=== PATIENT | female | born 1985 | race African-American/Black ===

== ENCOUNTER 2017-04-24 20:53 | Emergency (ER) | payer MEDICAID ==
[~2017-04-24] VITALS: Ht 157.5 cm; Wt 71.0 kg
[2017-04-24 20:56] VITALS: BP 126/80; PULSE 84; RESP 16; TEMP 98.1; O2SAT 100
--- NOTE | 2017-04-24 21:23 | PD ---
HPI Chief Complaint: Eye Problems/Injury Time Seen by Provider: 21:18 Travel History International Travel<30 days: No Contact w/Intl Traveler<30days: No Traveled to known affect area: No History of Present Illness HPI 31-year-old black female presents to emergency Department with complaints of a red eye since Sunday. She states that her daughter recently had pink eye. She works in a [employer] as a nurse. The patient states that she has had clear tearing, slight pain, slight itching, swelling, and decreased vision from the left eye. She does not wear contacts or glasses. No history of direct trauma. She denies any recent illness. Up-to-date with immunizations. [facility], [facility] Past Medical History Medical History: Denies Significant Hx Tetanus Vaccination: < 5 Years ?: Not LMP: 04/17/17 Past Surgical History Surgical History: No Previous Surgery Social History Alcohol Use: No Tobacco Use: No Allergies-Medications (Allergen,Severity, Reaction): Coded Allergies: No Known Allergies (Unverified , 04/24/17) Review of Systems Except as stated in HPI: all other systems reviewed are Neg Eyes: Positive: Blurred Vision, Drainage, Redness, Foreign Body Sensation, Pain , Tearing, Visual changes, No: Diploplia, Photophobia, Blindness Physical Exam Narrative GENERAL: Well-developed, well-nourished in no acute distress. Nontoxic appearing. HEAD: Normocephalic, atraumatic. EYES: Pupils equal round and reactive. Extraocular motions intact. No scleral icterus. No injection or drainage in the right eye. The left eye is injected and there is some mild palpebral edema. There is mild periorbital edema. There is slight clear drainage. No matting. No warmth. One drop of Alcaine is instilled in the left eye. Her eye lids are flipped. No foreign body seen. For seen stain is negative for corneal abrasion. ENT: TMs clear without erythema. The external auditory canals clear. Nose: clear . Posterior pharynx is pink and moist. No tonsillar edema or exudate. Uvula midline. Airway patent. NECK: Trachea midline.Supple, nontender, moves head freely. No central bony tenderness or spasm. CARDIOVASCULAR: Regular rate and rhythm without murmurs, gallops, or rubs. RESPIRATORY: Clear to auscultation. Breath sounds equal bilaterally. No wheezes , rales, or rhonchi. GASTROINTESTINAL: Abdomen soft, non-tender, nondistended. No hepato-splenomegaly , or palpable masses. No guarding. EXTREMITIES: No clubbing, cyanosis, or edema. No joint tenderness, effusion, or edema noted. BACK: Nontender without deformity or crepitance. No flank tenderness. Data Data Last Documented VS Vital Signs Date Time Temp Pulse Resp B/P Pulse Ox O2 Delivery O2 Flow Rate FiO2 04/24/17 20:56 98.1 84 16 126/80 100 Orders Proparacaine 0.5% Opth Soln (Alcaine 0.5 (04/24/17 21:30) MDM Medical Decision Making Medical Screen Exam Complete: Yes Emergency Medical Condition: Yes Medical Record Reviewed: Yes Differential Diagnosis MDM: High Differential diagnoses: Acute conjunctivitis (bacterial, viral, allergic, traumatic), glaucoma, iritis, Narrative Course Patient will be given Polytrim ophthalmic drops for possible bacterial conjunctivitis although I suspect most likely this is viral. Diagnosis Primary Impression: Acute conjunctivitis of left eye Qualified Code: H10.32 - Acute conjunctivitis of left eye, unspecified acute conjunctivitis type Patient Instructions: General Instructions Additional Instructions: Rest. Wash eyelashes with baby shampoo 3 times daily. Warm compresses. Polytrim ophthalmic drops. Followup with an eye doctor in one week. Follow-up with a medical doctor one week. Return to the ER if any problems. Med/Other Pt SpecificInfo: Prescription(s) given Scripts Polymyxin B-Trimethoprim Opth Drops (Polytrim Opth Drops)10,000-0.1 Unit/Ml-% Soln1 Drop LEFT EYE Q6HR 7 Days Prov:Kailey Clark MD 04/24/17 Disposition: 01 DISCHARGE HOME Condition: Stable Lonnie Banegas Apr 24, 2017 21:23
[2017-04-24] MEDS ORDERED: PROPARACAINE HCL 0.5% OPHT SOLN 15 ML BTL LEFT EYE ONE (21:30)
[2017-04-24] MEDS ORDERED: POLY10O LEFT EYE (21:38)
== END 2017-04-24 22:03 | disposition home or self-care (01) ==
LOC: NEPK 20:53
DX: H10.32 Unspecified acute conjunctivitis, left eye (principal)
CPT/HCPCS: 99283